=== PATIENT | female | born 1985 | race Caucasian/White ===

== ENCOUNTER → 2017-06-19 | Outpatient (CLI) | payer OTHER | END | disposition home or self-care (01) | LOC: SURG 09:15 | PROVIDERS: ATTEND Anesthesiology Pain Medicine | DX: M47.816 Spondylosis without myelopathy or radiculopathy, lumbar region (principal) | CPT/HCPCS: 99213 ==

== ENCOUNTER → 2017-07-04 | Outpatient (CLI) | payer OTHER ==
[~2017-07-04] MED LIST: 0.9 % SODIUM CHLORIDE 10 ML VIAL ONE; BUPIVACAINE MPF 0.25% 10 ML VIAL. ONE; IOHEXOL 300 MG/ML 50 ML VIAL. ONE; LIDOCAINE 1% PF 30 ML VIAL. ONE; methylPREDNISolone ACETATE 80 MG/ML VIAL. ONE
== END ==
LOC: SURG 08:35
PROVIDERS: ATTEND Anesthesiology Pain Medicine
DX: M54.16 Radiculopathy, lumbar region (principal); F17.210 Nicotine dependence, cigarettes, uncomplicated; Z72.89 Other problems related to lifestyle; Z98.890 Other specified postprocedural states
CPT/HCPCS: 62323; J1040; J2001; J3490; Q9967

== ENCOUNTER → 2017-10-10 | Outpatient (CLI) | payer OTHER ==
--- NOTE | 2017-10-10 15:01 | RAD ---
INDICATION: Bilateral foot pain. TECHNIQUE: 3 views of the bilateral feet are submitted for review. No comparison is available. FINDINGS: There is no fracture or dislocation. There is no osseous lesion or evidence of coalition. There are bilateral plantar calcaneal spurs and spurring at the insertion of the Achilles tendon. There are minimal degenerative changes at the first and second metatarsophalangeal joints of the left foot and at the right first metatarsal-phalangeal joint. IMPRESSION: 1. Negative for an acute fracture or dislocation. 2. Mild degenerative changes. Electronically signed by: Eron Quiñones MD (10/10/2017 2:57 PM) [facility]
== END | disposition home or self-care (01) ==
LOC: DXRAD 13:15
PROVIDERS: ATTEND Anesthesiology Pain Medicine
DX: M19.072 Primary osteoarthritis, left ankle and foot (principal); M19.071 Primary osteoarthritis, right ankle and foot; M77.32 Calcaneal spur, left foot; M77.31 Calcaneal spur, right foot
CPT/HCPCS: 73630

== ENCOUNTER → 2017-11-01 | Outpatient (CLI) | payer OTHER ==
[~2017-11-01] MED LIST changes: -methylPREDNISolone ACETATE 80 MG/ML VIAL. ONE
== END | disposition home or self-care (01) ==
LOC: SURG 09:50
PROVIDERS: ATTEND Anesthesiology Pain Medicine
DX: M54.16 Radiculopathy, lumbar region (principal); Z72.89 Other problems related to lifestyle; Z72.0 Tobacco use; Z90.49 Acquired absence of other specified parts of digestive tract; Z98.890 Other specified postprocedural states; M19.072 Primary osteoarthritis, left ankle and foot; M19.071 Primary osteoarthritis, right ankle and foot
CPT/HCPCS: 62323; J2001; J3490; Q9967; 64483

== ENCOUNTER → 2017-11-22 | Outpatient (CLI) | payer OTHER ==
[~2017-11-22] MED LIST changes: -0.9 % SODIUM CHLORIDE 10 ML VIAL ONE; +CITA20TA9 PO; +GABA600T2 PO; +IV RINGERS SOLUTION,LACTATED 1,000 ML IV SCH; +METF10007 PO; +MIDAZOLAM HCL PF 2 MG/2 ML VIAL. ONE; +OXYC-323 PO; +SPIR50TA4 PO
== END | disposition home or self-care (01) ==
LOC: SURG 08:41
PROVIDERS: ATTEND Anesthesiology Pain Medicine
DX: G90.522 Complex regional pain syndrome I of left lower limb (principal); E11.9 Type 2 diabetes mellitus without complications; Z79.84 Long term (current) use of oral hypoglycemic drugs; Z79.899 Other long term (current) drug therapy; G89.4 Chronic pain syndrome
CPT/HCPCS: 64520; 99152; 99153; J2001; J2250; J3010; J3490; J7120; Q9967

== ENCOUNTER → 2020-12-07 | Outpatient (CLI) | payer OTHER ==
[~2020-12-07] MED LIST changes: -BUPIVACAINE MPF 0.25% 10 ML VIAL. ONE; -GABA600T2 PO; +GABA600T7 PO; -IOHEXOL 300 MG/ML 50 ML VIAL. ONE; -IV RINGERS SOLUTION,LACTATED 1,000 ML IV SCH; -LIDOCAINE 1% PF 30 ML VIAL. ONE; -MIDAZOLAM HCL PF 2 MG/2 ML VIAL. ONE; -OXYC-323 PO; +OXYC1TAB15 PO
--- NOTE | 2020-12-07 10:47 | RAD ---
EXAM: Pelvic sonogram. HISTORY: Uterine fibroid. Abnormal uterine bleeding. TECHNIQUE: Transabdominal and transvaginal sonographic imaging of the pelvis was performed. COMPARISON: None. FINDINGS: The uterus measures 10.1 x 6.5 x 5.6 cm. The endometrial stripe measures 8 mm. The uterine parenchyma is heterogeneous and there is an indistinct junctional zone, suggesting adenomyosis. There are multiple nabothian cysts within the cervix, the largest of which measures 1.9 cm. The ovaries ar e normal in size and demonstrate normal blood flow. There are multiple antral follicles and a predomi nantly peripheral distribution. IMPRESSION: 1. Heterogeneous uterine parenchyma and indistinct architectural zone. This can be seen with adenomyo sis. No discrete fibroid is seen. 2. Multiple nabothian cysts within the cervix. 3. Multiple ovarian antral follicles and a predominantly peripheral distribution. This can be associa michelle with polycystic ovary syndrome. Electronically signed by: Millie Yanes MD (12/07/2020 10:44 AM) [id number]
== END ==
LOC: US 08:40
PROVIDERS: ATTEND Obstetrics & Gynecology
DX: N88.8 Other specified noninflammatory disorders of cervix uteri (principal); N80.0 Endometriosis of uterus; D25.9 Leiomyoma of uterus, unspecified; N92.0 Excessive and frequent menstruation with regular cycle; N93.9 Abnormal uterine and vaginal bleeding, unspecified
CPT/HCPCS: 76830; 76856